=== PATIENT | male | born 1960 | race Caucasian/White ===

== ENCOUNTER 2018-12-01 09:03 | Emergency (ER) | payer OTHER ==
[~2018-12-01] VITALS: Ht 167.6 cm; Wt 84.9 kg
--- NOTE | 2018-12-01 09:04 | NUR ---
Patient ambulated to bed 10. RN evaluating patient at bedside.
[2018-12-01 09:05] VITALS: BP 192/87
--- NOTE | 2018-12-01 09:06 | NUR ---
PT BIB FRIEND C/O LARGE LACERATION TO RT UPPER CHEST AND LT HAND 5TH FINGER WITH SEVERE DEFORMITY NOTED X 20MINS AGO, AFTER USING A METAL SHEET TRANSITION MANAGER. LUNGS CL BILAT, MOD BLEEDING TO CHEST, CAP REFIL TO 5TH FINGER <3 SEC, PT UNBLE TO MOVE 5FINGER TIP AT THIS TIME. PAIN AT 9/10. UNKOWN LAST TETANUS. VSS. ER MD AT BEDSIDE. HX-HNT, DM, HIGH CHOL RX:METFORMIN, LANTUS
[2018-12-01] MEDS ORDERED: MORPHINE SULFATE 2 MG/ML SYR IVP ONE (09:15)
[2018-12-01] MEDS ORDERED: NACL 0.9% 1,000 ML IV ONE (09:15)
[2018-12-01] MEDS ORDERED: CLINDAMYCIN 900 MG in DEXTROSE 5% 100 ML IV ONE (09:15)
[2018-12-01] MEDS ORDERED: LIDOCAINE 1% 500 MG/50 ML VIAL INJ SCH (09:15)
--- NOTE | 2018-12-01 09:15 | NUR ---
C/O LARGE LACERATION TO RT UPPER CHEST AND LT HAND 5TH FINGER WITH SEVERE DEFORMITY NOTED X 20MINS AGO, AFTER USING A METAL SHEET CHANNEL REBUILDER. LUNGS CL BILAT, MOD BLEEDING TO CHEST, CAP REFILL TO RT IMM, PT UNBLE TO MOVE 5FINGER TIP AT THIS TIME. PAIN 01/03 TET-UNK HX-HNT, DM, HIGH CHOL
--- NOTE | 2018-12-01 09:21 | NUR ---
x-ray at bedside
--- NOTE | 2018-12-01 09:21 | NUR ---
parts technician at bedside.
[2018-12-01] MEDS ORDERED: CLINDAMYCIN 900 MG/6 ML VIAL IV ONE (09:34)
[2018-12-01] MEDS ORDERED: MIDAZOLAM 2 MG/2 ML VIAL IVP ONE (09:35)
[2018-12-01] MEDS ORDERED: KETAMINE 10 MG/ML UD SYR **ER IVP ONE (09:35)
[2018-12-01] MEDS ORDERED: LIDOCAINE/EPI 1% 1:100000 20 ML VIAL INJ ONE (09:40)
--- NOTE | 2018-12-01 09:50 | NUR ---
TIME OUT TAKEN AT THIS TIME, FOR MODERATE SEDATION NOTES SEE PAPER CHARTING.
[2018-12-01 09:52] LABS: BASOPHILS % (AUTO) 0.3 % (0.0-2.0); EOSINOPHILS # (AUTO) 0.1 K/uL (0-0.4); EOSINOPHILS % (AUTO) 1.3 % (0.0-4.0); HEMATOCRIT 39.3 % (36-52); HEMOGLOBIN 13.4 g/dL (12.0-18.0); LYMPHOCYTES # (AUTO) 1.2 K/uL (2.0-11.5); LYMPHOCYTES % (AUTO) 23.1 % (20.5-51.1); MEAN CORPUSCULAR HEMOGLOBIN 32 pg (27-31); MEAN CORPUSCULAR HGB CONC 34 g/dL (33-37); MEAN CORPUSCULAR VOLUME 92.2 fL (80-94); MONOCYTES # (AUTO) 0.6 K/uL (0.8-1.0); MONOCYTES % (AUTO) 10.9 % (1.7-9.3); NEUTROPHILS # (AUTO) 3.3 K/uL (1.8-7.7); NEUTROPHILS % (AUTO) 64.4 % (42.2-75.2); PLATELET COUNT (AUTO) 246 K/uL (140-450); RED BLOOD CELL COUNT(AUTO) 4.26 MIL/uL (4.20-6.10); RED CELL DISTRIBUTION WIDTH 14.1 % (11.6-13.7); WHITE BLOOD COUNT (AUTO) 5.2 K/uL (4.8-10.8)
--- NOTE | 2018-12-01 09:56 | NUR ---
ANCHOR TACKER AT BEDSIDE FOR CONSCIOUS SEDATION SUPPLEMENTAL OXYGEN AT 2 LPM VIA NC AMBU BAG AT BEDSIDE
[2018-12-01 09:57] LABS: ANION GAP 15.1 (8-16); CARBON DIOXIDE 25.3 mmol/L (21-32); CHLORIDE 100 mmol/L (98-107); CREATININE 1.2 mg/dL (0.7-1.3); GFR ARICAN-AMERICAN 79 mL/min (>90); GLUCOSE 309 mg/dL (74-106); POTASSIUM 4.4 mmol/L (3.5-5.1); UREA NITROGEN, BLOOD 22 mg/dL (7-18)
--- NOTE | 2018-12-01 09:59 | NUR ---
Dr. Neville, RT and RN at bedside for laceration repair and reduction of left fifth digit dislocation with moderate sedation.
[2018-12-01 10:02] LABS: SODIUM SERUM 136 mmol/L (136-145)
[2018-12-01 10:03] LABS: ASPARTATE AMINOTRANSFERASE 14 U/L (15-37); TOTAL BILIRUBIN 0.4 mg/dL (0.0-1.0)
[2018-12-01 10:04] LABS: ACETAMINOPHEN < 0.5 ug/ml (10-30); SALICYLATE < 2.8 mg/dL (2.8-20.0)
[2018-12-01] MEDS ORDERED: LIDOCAINE MPF 1% - 5 mL VIAL 10 ML ONE (10:25)
--- NOTE | 2018-12-01 10:39 | NUR ---
CONSCIUOS SEDATION PROCEDURE COMPLETED
[2018-12-01] MEDS ORDERED: NEOMYCIN/POLYMYXIN/BACITRACIN 0.9 GM/1 PKT TP ONE (10:40)
--- NOTE | 2018-12-01 10:45 | NUR ---
[facility] ADAKU APPLIED SPLINT TO FIFTH DIGIT OF LT HAND, +CMS DISTAL TO SPILNT
[2018-12-01 10:59] LABS: BARBITURATE, URINE NEG. ng/ml (NEG <=200); BENZODIAZEPINE, URINE NEG. ng/mL (NEG <=200); CANNABINOID, URINE NEG. ng/mL (NEG <=50); COCAINE, URINE NEG. ng/mL (NEG <=300); OPIATE, URINE NEG. ng/mL (NEG <=2000); PHENCYCLIDINE SCREEN,URINE NEG. ng/mL (NEG <=25)
--- NOTE | 2018-12-01 11:12 | NUR ---
Patient to be transferred to [facility]. Is being transferred due to HIGHER LEVEL OF CARE. Receiving facility has accepting physician and available space. ER physician has signed transfer form. Patient or responsible alliance party has agreed to transfer and signed form. Patient belongings inventoried and will be sent with patient. Copy of nursing notes, lab reports, EKG, Physicians Orders and X-rays to be sent with patient. Report called to MIKE at receiving facility. [facility] ambulance service has been called for transfer. ETA is 30.
[2018-12-01] MEDS ORDERED: INSULIN REGULAR, HUMAN 100 UNIT/ML VIAL IVP ONE (11:15)
--- NOTE | 2018-12-01 11:37 | NUR ---
[facility] at bedside for transport to [facility].
[2018-12-01 11:43] VITALS: BP 105/57
== END 2018-12-01 11:42 | disposition short-term general hospital (02) ==
LOC: MED 09:03
DX: S61.412A Laceration without foreign body of left hand, initial encounter (principal); S61.217A Laceration without foreign body of left little finger without damage to nail, initial encounter; S21.111A Laceration without foreign body of right front wall of thorax without penetration into thoracic cavity, initial encounter; E11.9 Type 2 diabetes mellitus without complications; I10 Essential (primary) hypertension; X58.XXXA Exposure to other specified factors, initial encounter; Y93.89 Activity, other specified; Y92.009 Unspecified place in unspecified non-institutional (private) residence as the place of occurrence of the external cause; Y99.8 Other external cause status
CPT/HCPCS: 12036; 36415; 71045; 73130; 80053; 80305; 82948; 85025; 87040; 90471; 90715; 93005; 96365; 96375; 99285; G0480; G0482; J1815; J2001; J2250; J2270; J3490; J7030; Q0092; 99284